=== PATIENT | male | born 1955 | race American Indian/Alaskan Native ===

== ENCOUNTER 2019-06-14 15:35 | Inpatient (IN) | payer OTHER ==
[2019-06-15] MEDS ORDERED: ALBUTEROL 2.5 MG/3 ML NEBU IH PRN (17:08)
[2019-06-15] MEDS ORDERED: ONDANSETRON 4 MG/2 ML INJ IV PRN (17:08)
[2019-06-15] MEDS ORDERED: ACETAMINOPHEN 325 MG TAB PO PRN (17:08)
--- NOTE | 2019-06-15 17:08 | History and Physical Report ---
History of Present Illness Chief complaint: Im just weak History of present illness: 63 YO Male with HIV, HTN, Peripheral Neuropathy, OR, G6PD Deficiency, Systolic CHF(EF 25%), Schizoaffective Disorder, Cocaine Dependence, HBV, Seizure disorder admitted for BLE neuropathic pain. Pt found to have ROSA ELENA, Metabolic Acidosis, Rhabdomyolysis. Pt transferred to [facility] from [facility]. Pt see and evaluated upon arrival to his room. Pt complains of pain to bilateral lower extremities. No further nursing events. Pt admitted for treatment of Rhabdomyolysis, ROSA ELENA. Pt denies fever, chills, CP, Palpitations, NVD, Trauma, BRBPR, hematuria, skin rash, or recent ill contacts. CBC CMP, CK level, BNP pending at time of admission. Past History Past Medical History: other (see HPI) Past Surgical History: bowel surgery Social history: single, smoking Family history: hypertension Review of Systems Constitutional: no weight loss, no weight gain, no fever, no sweats Ears, nose, mouth and throat: no ear pain, no ear discharge, no tinnitis, no nose pain, no nasal congestion Cardiovascular: no chest pain, no palpitations, no rapid/irregular heart beat, no edema, no syncope Respiratory: no cough, no excessive sputum, no hemoptysis, no shortness of breath Gastrointestinal: no abdominal pain, no vomiting, no constipation, no change in bowel habits, no hematemesis Genitourinary Male: no hematuria, no flank pain, no urinary frequency, no urinary hesitancy, no nocturia Rectal: no pain, no incontinence, no bleeding Musculoskeletal: no neck pain, no arm numbness/tingling, no low back pain, no shooting leg pain Integumentary: no pruritis, no redness, no sores, no jaundice, no boils Neurological: no transient paralysis, no parathesias, no tingling, no seizures, no syncope Psychiatric: no anxiety, no change in sleep habits, no insomnia, no hypersomnia, no change in appetite, no suicidal ideation Endocrine: no cold intolerance, no polyphagia, no polydipsia, no polyuria Hematologic/Lymphatic: no easy bruising, no easy bleeding, no lymphadenopathy, no lymphedema Allergic/Immunologic: no allergic rhinitis, no wheezing, no anaphylaxis, no angioedema Exam - Constitutional General appearance: Present: no acute distress, well-nourished - EENT Eyes: Present: PERRL ENT: hearing intact, clear oral mucosa - Neck Neck: Present: supple, normal ROM - Respiratory Respiratory effort: normal Respiratory: bilateral: CTA - Cardiovascular Heart Sounds: Present: S1 & S2. Absent: rub, click - Extremities Extremities: pulses symmetrical, No edema Peripheral Pulses: within normal limits - Abdominal General gastrointestinal: Present: soft, non-tender, non-distended, normal bowel sounds Male genitourinary: Present: normal - Integumentary Integumentary: Present: clear, warm, dry - Musculoskeletal Musculoskeletal: gait normal, strength equal bilaterally - Psychiatric Psychiatric: appropriate mood/affect, intact judgment & insight - Neurologic Neurologic: CNII-XII intact, moves all extremities Results - Labs CBC & Chem 7: 06/15/19 21:22 Assessment and Plan - Patient Problems (1) Rhabdomyolysis Current Visit: Yes Status: Acute Qualifiers: Encounter type: initial encounter Plan to address problem: CK level, cmp, monitor uop q shift, IV bicarbonate as clinically indicated. (2) Systolic CHF, chronic Current Visit: Yes Status: Acute Plan to address problem: compensated CHF, strict I/O,daily weight, monitor uop q shift, afterload reduction. (3) HIV (human immunodeficiency virus infection) Current Visit: Yes Status: Acute Qualifiers: HIV symptom status: asymptomatic Qualified Code(s): Z21 - Asymptomatic human immunodeficiency virus [HIV] infection status Plan to address problem: Outpatient ID F/U care, continue current care. (4) Acidosis Current Visit: Yes Status: Acute Plan to address problem: IVF resuscitation therapy as tolerated, CMP, (5) Cocaine dependence Current Visit: Yes Status: Acute Qualifiers: Substance use status: in withdrawal Qualified Code(s): F14.23 - Cocaine dependence with withdrawal Plan to address problem: supportive care, outpatient support group referral, case management consulted. (6) ROSA ELENA (acute kidney injury) Current Visit: Yes Status: Acute Plan to address problem: IVF resuscitation therapy, monitor uop q shift, cmp, (7) DVT prophylaxis Current Visit: Yes Status: Acute Plan to address problem: SCD to BLE while in bed, Pt ambulatory..
[2019-06-15] MEDS ORDERED: oxyCODONE /ACETAMINOPHEN 5-325MG TAB PO PRN (20:35)
[2019-06-15 22:01] LABS: Hematocrit 41.1 % (35.5-45.6); Hemoglobin 13.7 gm/dl (11.8-15.2); Mean Corpuscular HGB Conc 33 % (32-34); Mean Corpuscular Volume 99 fl (84-94); Platelet Count 177 K/mm3 (140-440); Red Blood Count 4.17 M/mm3 (3.65-5.03); Red Cell Distribution Width 14.4 % (13.2-15.2)
[2019-06-15 22:19] LABS: Alanine Aminotransferase 114 units/L (7-56); Albumin 3.3 g/dL (3.9-5); BUN/Creatinine Ratio 13; Blood Urea Nitrogen 10 mg/dL (9-20); Calcium 9.6 mg/dL (8.4-10.2); Hemolysis Index 37
[2019-06-15 22:54] LABS: Basophils % (Manual) 0 % (0.0-1.8); Large Platelets 1+; Platelet Estimate Consistent w Auto; RBC Morphology Normal; Total Cells Counted 100
[2019-06-15 23:58] LABS: Free T4 (Free Thyroxine) 1.22 ng/dL (0.76-1.46)
[2019-06-16 06:50] LABS: Hematocrit 38.7 % (35.5-45.6); Hemoglobin 13.1 gm/dl (11.8-15.2); Mean Corpuscular HGB Conc 34 % (32-34); Mean Corpuscular Volume 97 fl (84-94); Platelet Count 181 K/mm3 (140-440); Red Blood Count 3.98 M/mm3 (3.65-5.03); Red Cell Distribution Width 14.4 % (13.2-15.2)
[2019-06-16 07:12] LABS: Alanine Aminotransferase 98 units/L (7-56); Albumin 3.4 g/dL (3.9-5); BUN/Creatinine Ratio 13; Blood Urea Nitrogen 9 mg/dL (9-20); Calcium 9.2 mg/dL (8.4-10.2); Hemolysis Index 4
[2019-06-16 09:48] LABS: Basophils % (Manual) 0 % (0.0-1.8); Platelet Estimate Consistent w Auto; RBC Morphology Normal; Total Cells Counted 100
[2019-06-16 12:31] VITALS: BP 134/65
[2019-06-16] MEDS ORDERED: guaiFENesin ER 600 MG TAB PO SCH (15:00)
--- NOTE | 2019-06-16 15:07 | Discharge Summary ---
Providers - Providers Date of Admission: 06/15/19 17:10 Attending physician: WINSTON JAIMES MD 06/15/19 22:27 Consult to Case Management [CONS] Routine Services Needed at Discharge: Toolroom Clerk Notified:: cm Additional Physician Instructions: D/C planning in am, Outpatient drug addiction counseling referral Primary care physician: OUTPATIENT PHLEBOTOMIST Hospitalization Reason for admission: transfer from [facility] with [facility] Hospital course: 63 YO Male with HIV, HTN, Peripheral Neuropathy, [place], G6PD Deficiency, Systolic CHF(EF 25%), Schizoaffective Disorder, Cocaine Dependence, HBV, Seizure disorder admitted for BLE neuropathic pain. Pt found to have ROSA ELENA, Metabolic Acidosis, Rhabdomyolysis. Pt transferred to [facility] from [facility]. Pt see and evaluated upon arrival to his room. Pt complains of pain to bilateral lower extremities. No further nursing events. Pt admitted for treatment of Rhabdomyolysis, ROSA ELENA. Pt denies fever, chills, CP, Palpitations, NVD, Trauma, BRBPR, hematuria, skin rash, or recent ill contacts. CBC CMP, CK level, BNP pending at time of admission. Patient was noted to be dehydrated, he had been started on approprate treatment while at [place] for more than 48 hours and repeat lab at our facility yesterday and today shows remarkable improvement. He is therefore discharged and recommended to stay hydrated Patient Problems (1) Rhabdomyolysis (2) Systolic CHF, chronic Current Visit: Yes Status: Acute Plan to address problem: compensated CHF, strict I/O,daily weight, monitor uop q shift, afterload reduction. (3) HIV (human immunodeficiency virus infection) Current Visit: Yes Status: Acute Qualifiers: HIV symptom status: asymptomatic Qualified Code(s): Z21 - Asymptomatic human immunodeficiency virus [HIV] infection status Plan to address problem: Outpatient ID F/U care, continue current care. (4) Acidosis Current Visit: Yes Status: Acute Plan to address problem: IVF resuscitation therapy as tolerated, CMP, (5) Cocaine dependence Current Visit: Yes Status: Acute Qualifiers: Substance use status: in withdrawal Qualified Code(s): F14.23 - Cocaine dependence with withdrawal Plan to address problem: supportive care, outpatient support group referral, case management consulted. (6) ROSA ELENA (acute kidney injury) Current Visit: Yes Status: Acute Plan to address problem: IVF resuscitation therapy, monitor uop q shift, cmp, Disposition: DC-01 TO HOME OR SELFCARE Time spent for discharge: 35 mins Core Measure Documentation - Palliative Care Palliative Care/ Comfort Measures: Not Applicable - Core Measures Any of the following diagnoses?: none Exam - Physical Exam Narrative exam: - Constitutional General appearance: Present: no acute distress, well-nourished - EENT Eyes: Present: PERRL ENT: hearing intact, clear oral mucosa - Neck Neck: Present: supple, normal ROM - Respiratory Respiratory effort: normal Respiratory: bilateral: CTA - Cardiovascular Heart Sounds: Present: S1 & S2. Absent: rub, click - Extremities Extremities: pulses symmetrical, No edema Peripheral Pulses: within normal limits - Abdominal General gastrointestinal: Present: soft, non-tender, non-distended, normal bowel sounds Male genitourinary: Present: normal - Integumentary Integumentary: Present: clear, warm, dry - Musculoskeletal Musculoskeletal: gait normal, strength equal bilaterally - Psychiatric Psychiatric: appropriate mood/affect, intact judgment & insight - Neurologic Neurologic: CNII-XII intact, moves all extremities - Constitutional Vitals: Temp Pulse Resp BP Pulse Ox 98.5 F 69 20 134/65 97 06/16/19 11:41 06/16/19 11:41 06/16/19 11:41 06/16/19 11:41 06/16/19 11:41 Plan Activity: advance as tolerated, fall precautions Diet: low fat Special Instructions: record daily BP diary Follow up with: PRIMARY CARE, [Primary Care Provider] - 7 Days
[2019-06-16] MEDS ORDERED: POTASSIUM CHLORIDE ER 20 MEQ TAB PO SCH (16:00)
[2019-06-16] MEDS ORDERED: GABAPENTIN 100 MG CAP PO SCH (22:00)
[2019-06-16] MEDS ORDERED: carvediloL 6.25 MG TAB PO SCH (22:00)
[2019-06-17] MEDS ORDERED: FUROSEMIDE 40 MG TAB PO SCH (06:00)
[2019-06-17] MEDS ORDERED: TAMSULOSIN 0.4 MG CAP PO SCH (10:00)
[2019-06-17] MEDS ORDERED: LAMIVUDI PO SCH (10:00)
[2019-06-17] MEDS ORDERED: ABACAVIR PO SCH (10:00)
[2019-06-17] MEDS ORDERED: SOFOSBUVIR PO SCH (10:00)
[2019-06-17] MEDS ORDERED: LIDOCAINE TP SCH (10:00)
[2019-06-17] MEDS ORDERED: LEDIPASVIR PO SCH (10:00)
[2019-06-17] MEDS ORDERED: DOLUTEGRAVIR PO SCH (10:00)
[2019-06-17] MEDS ORDERED: [UNRECOGNIZED DRUG - OTHER] PO SCH (10:00)
== END 2019-06-16 16:25 | disposition home or self-care (01) | DRG 683 ==
LOC: UNDOADMIN 21:48 → 3A 21:48
PROVIDERS: ADMIT Internal Medicine Geriatric Medicine; ATTEND Internal Medicine
DX: N17.9 Acute kidney failure, unspecified (principal); M62.82 Rhabdomyolysis; E87.2 Acidosis; I50.22 Chronic systolic (congestive) heart failure; F14.23 Cocaine dependence with withdrawal; I11.0 Hypertensive heart disease with heart failure; F25.9 Schizoaffective disorder, unspecified; G40.909 Epilepsy, unspecified, not intractable, without status epilepticus; G62.9 Polyneuropathy, unspecified; Z21 Asymptomatic human immunodeficiency virus [HIV] infection status; Z82.49 Family history of ischemic heart disease and other diseases of the circulatory system; I25.2 Old myocardial infarction; Z86.19 Personal history of other infectious and parasitic diseases
CPT/HCPCS: 36415; 80053; 82140; 82550; 83880; 84439; 84443; 85007; 85025; 87116; 99406; G0378